=== PATIENT | male | born 1990 | race Caucasian/White ===

== ENCOUNTER 2018-01-19 20:00 | Emergency (ER) | payer OTHER ==
[2018-01-19 20:43] VITALS: BP 147/92; PULSE 84; TEMP 98; BMI 29.1
--- NOTE | 2018-01-19 20:44 | PDOC ---
Rapid Medical Evaluation Time Seen by Provider: 01/19/18 20:41 Medical Evaluation: Allergies Allergy/AdvReac Type Severity Reaction Status Date / Time No Known Allergies Allergy Verified 10/14/12 21:16 01/19/18 20:41 Pt presents to the ED for L elbow pain. Pt states he fell off a 4 foot ladder. States broke his fall on his L elbow. Pain with extension. Exam: Pain with extension of L elbow. able to supinate and pronate the wrist Orders: x-ray Pt to proceed to ED for further eval Discharge Disposition - Diagnosis Left elbow pain - Referrals - Patient Instructions - Post Discharge Activity
[2018-01-19] MEDS ORDERED: IBUPROFEN 400 MG TABLET (FP) PO ONE ×2 (22:10)
--- NOTE | 2018-01-19 22:13 | PDOC ---
History of Present Illness - General Chief Complaint: Injury Stated Complaint: LT ELBOW INJURY Time Seen by Provider: 01/19/18 20:41 History Source: Patient Exam Limitations: No Limitations - History of Present Illness Initial Comments: 01/19/18 22:11 HISTORY OF PRESENT ILLNESS: 27-year-old male with history of asthma presents emergency Department with left elbow pain status post fall off ladder today. 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 Patient denies striking his head or any loss of consciousness. After the injury the patient had immediate pain in his left elbow and noted that his left elbow slowly flexed. The incident happened at approximately 6:00 this evening. Patient is right-hand dominant. No recent travel or sick contacts. PAST MEDICAL HISTORY: Asthma SURGICAL HISTORY: Denies ALLERGIES: No known drug allergies REVIEW OF SYSTEMS General/Constitutional: Denies fever or chills. Denies weakness, weight change. HEENT: Denies change in vision. Denies ear pain or discharge. Denies sore throat. Cardiovascular: Denies chest pain or shortness of breath. Respiratory: Denies cough, wheezing, or hemoptysis. Gastrointestinal: Denies nausea, vomiting, diarrhea or constipation. Denies rectal bleeding. Genitourinary: Denies dysuria, frequency, or change in urination. Musculoskeletal: Left elbow pain. Denies neck or back pain. Skin and breasts: Denies rash or easy bruising. Neurologic: Denies headache, vertigo, loss of consciousness, or loss of sensation. Psychiatric: Denies depression or anxiety. Endocrine: Denies increased thirst. Denies abnormal weight change. Hematologic/Lymphatic: Denies anemia, easy bleeding, or history of blood clots. Allergic/Immunologic: Denies hives or skin allergy. Denies latex allergy. PHYSICAL EXAM General Appearance: Well-appearing, appropriately dressed. No apparent distress , no intoxication. HEENT: EOMI, PERRLA, normal ENT inspection, normal voice, TMs normal, pharynx normal. No conjunctival pallor. No photophobia, scleral icterus. Neck: Supple. Trachea midline. No tenderness, rigidity, carotid bruit, stridor , lymphadenopathy, or thyromegaly. Respiratory/Chest: Lungs CTAB. No shortness of breath, chest tenderness, respiratory distress, accessory muscle use. No crackles, rales, rhonchi, stridor , wheezing, dullness Cardiovascular: RRR. S1, S2. No JVD, murmur, bradycardia, tachycardia. Vascular Pulses: Dorsalis-Pedis (R): 2+, Dorsalis-Pedis (L): 2+ Gastrointestinal/Abdominal: Normal bowel sounds. Abdomen soft, non-distended. No tenderness or rebound tenderness. No organomegaly, pulsatile mass, guarding, hernia, hepatomegaly, splenomegaly. Lymphatic: No adenopathy, tenderness. Musculoskeletal/Extremities: Normal inspection. FROM of all extremities, normal capillary refill. Pelvis Stable. No CVA tenderness. No tenderness to extremities, pedal edema, swelling, erythema or deformity. Increased pain and elbow with pronation and supination of the wrist. No palpable deformities along the forearm bones or the humerus Integumentary: Appropriate color, dry, warm. No cyanosis, erythema, jaundice or rash Neurologic: packer and carry out II-XII intact. Fully oriented, alert. Appropriate mood/affect. Motor strength 5/5. No appreciable EOM palsy, facial droop or sensory deficit. Past History - Past Medical History Allergies/Adverse Reactions: Allergies Allergy/AdvReac Type Severity Reaction Status Date / Time No Known Allergies Allergy Verified 01/19/18 20:43 Home Medications: Ambulatory Orders NK [No Known Home Medication] 01/19/18 Asthma: Yes COPD: No - Suicide/Smoking/Psychosocial Hx Smoking Status: No Smoking History: Never smoked Number of Cigarettes Smoked Daily: 0 *Physical Exam - Vital Signs Last Vital Signs Temp Pulse Resp BP Pulse Ox 98 F 84 18 147/92 100 01/19/18 20:40 01/19/18 20:40 01/19/18 20:40 01/19/18 20:40 01/19/18 20:40 Medical Decision Making - Medical Decision Making 01/19/18 22:13 A/P: 27-year-old male with left elbow pain status post fall from a ladder No bony tenderness of the humerus, elbow, radius, ulna Worsening pain with pronation and supination of the left wrist X-rays of the elbow and forearm Motrin 800 mg now Reassess 01/19/18 22:42 X-rays as read by me: No acute fractures noted of the humerus, elbow or bones of the forearm. No dislocations present. Discharge home. *DC/Admit/Observation/Transfer Diagnosis at time of Disposition: Left elbow pain - Discharge Dispostion Disposition: HOME Condition at time of disposition: Stable Decision to Admit order: No - Referrals Referrals: Lalito Perdomo MD [Staff Physician] - - Patient Instructions Additional Instructions: Take Tylenol or Motrin as needed for pain. Follow manufacturers instructions for appropriate dosage. Apply ice for 20 minutes and removed for at least 20 minutes before reapplying the ice. Whenever possible keep your hand elevated to decrease swelling. You've been given the number for an orthopedist. If symptoms do not resolve within the next 7 days call the orthopedist for further evaluation. Return to emergency department for discoloration of the hand, numbness or tingling to the hand, worsening pain, or any other concerns. Thank you very much for choosing us to provide your emergent healthcare needs. - Post Discharge Activity Forms/Work/School Notes: Back to Work
== END 2018-01-19 22:45 | disposition home or self-care (01) ==
LOC: JERFT 20:00
DX: M25.522 Pain in left elbow (principal); W11.XXXA Fall on and from ladder, initial encounter; Y93.H3 Activity, building and construction; Y92.69 Other specified industrial and construction area as the place of occurrence of the external cause; Y99.0 Civilian activity done for income or pay
CPT/HCPCS: 73070-TC-LT-FY; 73090-TC-LT-FY; 99281-25